=== PATIENT | male | born 1965 | race Caucasian/White ===

== ENCOUNTER 2025-07-15 09:18 | Emergency (ER) | payer BC, MEDICAID, SELFPAY ==
[2025-07-15 09:29] VITALS: BP 129/87; PULSE 84; RESP 15; TEMP 37.1; O2SAT 96
--- NOTE | 2025-07-15 10:00 | DI.RAD_ITS ---
Exam(s) XR FOOT LT COMPLETE EXAM: XR FOOT LT COMPLETE CLINICAL HISTORY: injury 1st toe. TECHNIQUE: 2D digital imaging was performed of the left foot. Three images were obtained. AP, oblique and lateral views were obtained. COMPARISON: No exams were available for comparison FINDINGS: BONES: There is an acute nondisplaced transverse fracture through the proximal metaphysis of the distal phalanx of the great toe. There is also a lucency seen through the terminal tuft which may represent a nondisplaced fracture. The bones are mildly osteopenic. JOINTS: No dislocation present. SOFT TISSUE: There is soft tissue swelling of the great toe. No radiopaque foreign body is identified. IMPRESSION: Acute nondisplaced fracture involving the distal phalanx of the great toe. DATA REPOSITORY: RADIATION DOSE DELIVERED:
[2025-07-15] MEDS: Cephalexin 500 MG CAP PO (12:25)
--- NOTE | 2025-07-15 12:31 | W.ED.GENAD ---
Discharge Plan Disposition Patient Disposition: Home Condition: Stable Discharge Details Clinical Impression: Laceration of toe of left foot with damage to nail, Fractured toe Primary Care Provider: Mily,Local ED Provider: Leilani Barnes Home Meds and New Rx's Prescriptions: New cephalexin 500 mg capsule 500 mg PO QID 14 Days Qty: 56 0RF No Action gabapentin 300 mg capsule 300 mg PO QID pregabalin [Lyrica] 200 mg capsule 200 mg PO TID duloxetine 60 mg capsule,delayed release(DR/EC) 60 mg PO BID vibegron PO DAILY baclofen 10 mg tablet 10 mg PO 5X/DAY bupropion HCl 75 mg tablet 450 mg PO DAILY Rx Instructions: administer 6 hours apart methenamine hippurate 1 gram tablet 1 g PO BID solifenacin [Vesicare] 10 mg tablet 10 mg PO DAILY trazodone 50 mg tablet 50 mg PO QHS mirabegron [Myrbetriq] 50 mg tablet extended release 24 hr 50 mg PO DAILY Discharge Instructions Instructions: Toe Injury (DC), Laceration Repair With Stitches ED, Toe Fracture ED Additional Instructions: Keep foot elevated is much as possible. Take antibiotic as prescribed. Change bandage daily. Follow-up with podiatry next week. Blue sutures will need to be removed in 7 to 10 days. Discharge Data Discharge Physician: Leilani Barnes [facility] General Date/Time Provider Initiated Documentation: 07/15/25 09:28. HPI Narrative: 59-year-old male presents for evaluation of left great toe injury. Patient is quadriplegic. He does not have any feeling in his foot. He states that he must have injured it at some point yesterday. He did note that there was bleeding from his toe prior to bed. They bandaged the area. He states he woke in the middle night with a significant amount of bleeding. He is unsure how he injured the toe. His tetanus is up-to-date. Bleeding is well-controlled at this time. Denies any other injury. Related Data Home Medications ?Medication ?Instructions ?Recorded ?Confirmed baclofen 10 mg tablet 10 mg PO 5X/DAY 07/15/25 07/15/25 bupropion HCl 75 mg tablet 450 mg PO DAILY 07/15/25 07/15/25 cephalexin 500 mg capsule 500 mg PO QID 14 days #56 caps 07/15/25 duloxetine 60 mg capsule,delayed 60 mg PO BID 07/15/25 07/15/25 release gabapentin 300 mg capsule 300 mg PO QID 07/15/25 07/15/25 methenamine hippurate 1 gram tablet 1 g PO BID 07/15/25 07/15/25 mirabegron 50 mg tablet,extended 50 mg PO DAILY 07/15/25 07/15/25 release 24 hr (Myrbetriq) pregabalin 200 mg capsule (Lyrica) 200 mg PO TID 07/15/25 07/15/25 solifenacin 10 mg tablet (Vesicare) 10 mg PO DAILY 07/15/25 07/15/25 trazodone 50 mg tablet 50 mg PO QHS 07/15/25 07/15/25 vibegron PO DAILY 07/15/25 Previous Rx's ?Medication ?Instructions ?Recorded cephalexin 500 mg capsule 500 mg PO QID 14 days #56 caps 07/15/25 Allergies Allergy/AdvReac Type Severity Reaction Status Date / Time No Known Allergies Allergy Unverified 07/15/25 09:38 General Stated Complaint: Laceration CATHY: 3 Review of Systems Narrative: Remainder of review of systems otherwise negative except for as noted in the HPI x 5. Exam Narrative Exam Narrative: General: non-toxic, no respiratory distress, comfortable HEENT: normocephalic, atraumatic, lids and lashes normal, PERRL, EOMI, anicteric sclera, no conjunctival injection, moist oral mucosa Musculoskeletal: Complete avulsion of left great toenail, complex laceration through nailbed, small amount of active bleeding, instability to the distal portion of the left great toe, 2+ dorsal pedal pulses, mild diffuse swelling throughout left foot which is baseline, full range of motion of arms, no tenderness to palpation. no clubbing, cyanosis Neurologic: appropriate for age, strength normal Psych: alert and oriented Skin: As above, otherwise no petechiae, no lesions, warm and dry Course Vital Signs Vital signs: Vital Signs Temperature 37.1 C 07/15/25 09:29 Pulse 84 07/15/25 09:29 Respiratory Rate 15 07/15/25 09:29 Blood Pressure 129/87 07/15/25 09:29 Pulse Oximetry 96 07/15/25 09:29 Temperature 37.1 C 07/15/25 09:29 Temperature Source Oral 07/15/25 09:29 Pulse 84 07/15/25 09:29 Respiratory Rate 15 07/15/25 09:29 Blood Pressure 129/87 07/15/25 09:29 Blood Pressure Position Sitting 07/15/25 09:29 Pulse Oximetry 96 07/15/25 09:29 Oxygen Delivery Method Room Air 07/15/25 09:29 Oxygen Flow Rate 0 07/15/25 09:29 Pain Level 0 07/15/25 09:29 Procedure Laceration Laceration 1: Date of Procedure: 07/15/25 Time of procedure: 12:00 Provider that performed the procedure: Leilani Barnes Standard Time Out Performed: Yes Patient Consented: Verbally Site: lower extremity and other (Left great toe) Description: stellate, flap and irregular (4 cm total length) Skin layer closed with: vicryl (# 12) and other (Prolene #5) Suture size: 4-0 Number of sutures:: 17 Medical Decision Making 59-year-old male paraplegic presents for evaluation of injury to left great toe. Patient with complex laceration involving nailbed. Toenail has avulsed. Tetanus is up-to-date. He does not have any sensation baseline. There is good pulses. X-ray was obtained and shows distal fracture. Case discussed with podiatry Dr. Garcia who recommends suturing, antibiotics, surgical suit and follow-up. Wound was repaired by myself with good cosmetic effect. No further bleeding. Xeroform and Telfa was applied. Kerlix applied over top. Patient placed in boot for protection. He started on Keflex. Referral made to podiatry for follow-up in 1 week. He is also given a copy of his film on disc as he is returning home to [place] in 2 weeks. Patient and understand indications to return. PFSH All Active Problems Fractured toe (Acute) Laceration of toe of left foot with damage to nail (Acute) Social History Smoking/Tobacco Use Status: Never Smoking risk assessment performed?: Yes Alcohol Intake: current Alcohol Intake frequency: a few times a month Drug use: Never Substance use type: does not use Housing: house [facility] Have you Been Recently Intoxicated or Drunk Within the Last 30 days?: No Have you Ever Experienced Previous Episodes of Alcohol Withdrawal?: No Have you ever Experienced Withdrawal Seizures?: No Have you ever Experienced Delirium Tremens(DT)s?: No Have you ever undergone Alcohol Rehabilitation Treatment (i.e, inpt ot outpatient treatment programs)?: No Have you ever Experienced Blackouts?: No Have you ever Combined Alcohol with other Downers within the last 90 days?: No Have you ever Combined Alcohol with any other Substance of Abuse during the last 90 days?: No Result: 0
== END 2025-07-15 14:20 | disposition home or self-care (01) ==
PROVIDERS: Emergency Provider Emergency Medicine Emergency Medical Services
DX: S91.212A Laceration without foreign body of left great toe with damage to nail, initial encounter (principal); S92.422A Displaced fracture of distal phalanx of left great toe, initial encounter for closed fracture; X58.XXXA Exposure to other specified factors, initial encounter
CPT/HCPCS: 99283 ×2; 12002; 29515; 73630